=== PATIENT | female | born 1985 | race Caucasian/White ===

== ENCOUNTER 2017-05-03 05:21 | Inpatient (IN) | payer BC ==
[~2017-05-03] VITALS: Ht 160 cm; Wt 75.9 kg
[2017-05-03] VITALS (15 sets, daily range): BP systolic 117–145; BP diastolic 66–86
[2017-05-03] MEDS ORDERED: PRENATAL TABLE1 EAC3 PO (05:40)
[2017-05-03] MEDS ORDERED: PEPCID20 MG PO (05:41)
[2017-05-03] MEDS ORDERED: OXYCODONE-APAP1 EACH PO (10:45)
[2017-05-03] MEDS ORDERED: IBUPROFEN800 MG PO (10:45)
[2017-05-04 07:12] LABS: EOSINOPHIL (%) 0.2 % (0-5); HEMATOCRIT 33.3 % (36.0-46.0); IMMATURE GRANULOCYTE (%) 1.4 % (0.0-0.7); IMMATURE GRANULOCYTE COUNT 0.2 K/uL; INSTRUMENT ABS NEUTROPHIL CT 12.6 K/uL; LYMPHOCYTE COUNT 2.1 K/uL (1.0-2.8); MCH 30.9 PG (29.0-34.0); MCHC 33.6 G/DL (30.0-36.0); MCV 91.7 FL (83-99); MEAN PLAT.VOLUME 10.4 uM^3 (9.5-12.4); NEUTROPHIL (%) 78.8 % (45-76); NEUTROPHIL COUNT 12.6 K/uL (1.8-6.4); PLATELET COUNT 176 K/uL (156-360); RBC DIS.WIDTH-CV 14.2 % (11.8-14.6); RBC DIS.WIDTH-SD 47.6 % (39-53); RED BLOOD COUNT 3.63 M/uL (3.80-5.20)
[2017-05-04 07:25] VITALS: BP 133/87
[2017-05-04 14:37] VITALS: BP 128/77
[2017-05-04 19:54] VITALS: BP 148/70
[2017-05-04 19:55] VITALS: BP 139/76
[2017-05-04 23:00] VITALS: BP 153/58
[2017-05-05] VITALS: BP 108/57
[2017-05-05 07:30] VITALS: BP 151/91
== END 2017-05-05 16:23 | disposition home or self-care (01) | DRG 775 ==
LOC: LDRP-OP 05:21 → 2WEST 05:22 → LDRP-OP 06-11 08:44
PROVIDERS: Obstetrics & Gynecology
DX: O76 Abnormality in fetal heart rate and rhythm complicating labor and delivery (principal); O62.3 Precipitate labor; O32.1XX0 Maternal care for breech presentation, not applicable or unspecified; O70.20 Third degree perineal laceration during delivery, unspecified; Z3A.38 38 weeks gestation of pregnancy; Z37.0 Single live birth
CPT/HCPCS: 85025; J2590